=== PATIENT | female | born 1995 ===

== ENCOUNTER 2016-05-22 22:04 | Emergency (ER) | payer OTHER ==
[2016-05-22 22:28] VITALS: BP 136/86; PULSE 98; RESP 16; TEMP 99.2; O2SAT 100
--- NOTE | 2016-05-22 22:57 | ED PDOC ---
HPI: Female Pain Time Seen by Provider: 05/22/16 22:31 Chief Complaint (Nursing): Female Genitourinary Chief Complaint (Provider): vaginal irritation History Per: Patient History/Exam Limitations: no limitations Onset/Duration Of Symptoms: Days (3) Current Symptoms Are (Timing): Still Present Quality Of Discomfort: Burning Additional History Per: Patient Additional Complaint(s): 21 y/o female presents with dysuria, x 3 days. Associated vaginal itching/ burning with white discharge. Denies fever, nausea/vomiting, abdominal pain, pelvic pain, hematuria. Past Medical History Reviewed: Historical Data, Nursing Documentation, Vital Signs Vital Signs: Last Vital Signs Temp 99.2 F 05/22/16 22:25 Pulse 98 H 05/22/16 22:25 Resp 16 05/22/16 22:25 BP 136/86 05/22/16 22:25 Pulse Ox 100 05/22/16 22:25 - Medical History PMH: No Chronic Diseases - Surgical History Surgical History: No Surg Hx - Family History Family History: States: Unknown Family Hx - Home Medications Home Medications: Ambulatory Orders Medication Instructions Recorded Fluconazole [Diflucan] 150 mg PO ONCE #1 tab 05/22/16 - Allergies Allergies/Adverse Reactions: Allergies Allergy/AdvReac Type Severity Reaction Status Date / Time Penicillins Allergy RASH Verified 05/22/16 22:28 pineapple Allergy RASH Verified 05/22/16 22:28 Review of Systems ROS Statement: Except As Marked, All Systems Reviewed And Found Negative Genitourinary Female: Positive for: Dysuria, Vaginal Discharge Physical Exam - Reviewed Nursing Documentation Reviewed: Yes Vital Signs Reviewed: Yes - Physical Exam Appears: Positive for: Well, Non-toxic, No Acute Distress Head Exam: Positive for: ATRAUMATIC, NORMAL INSPECTION, NORMOCEPHALIC Skin: Positive for: Normal Color Cardiovascular/Chest: Positive for: Regular Rate, Rhythm Respiratory: Positive for: Normal Breath Sounds Pelvic Exam: Positive for: External Exam Normal, No Cerv. Motion Tender, Discharge (white "cottage cheese"), Other (exam chaperoned by Nikole DELAROSA). Negative for: Active Bleeding Extremity: Positive for: Normal ROM Neurologic/Psych: Positive for: Alert, Oriented - ECG O2 Sat by Pulse Oximetry: 100 Disposition - Clinical Impression Clinical Impression: Candidiasis of vagina - Patient ED Disposition Is Patient to be Admitted: No Counseled Patient/Family Regarding: Studies Performed, Diagnosis, Need For Followup, Rx Given - [facility] Disposition: Routine/Home Disposition Time: 23:24 Condition: GOOD Prescriptions: Fluconazole [Diflucan] 150 mg PO ONCE #1 tab Instructions: Vulvovaginal Candidiasis (ED) Print Language: ICELANDIC
[2016-05-22 23:16] LABS: RBC URINE 4 /hpf (0-3); URINE BACTERIA MANY (<OCC); URINE BILIRUBIN NEGATIVE (NEGATIVE); URINE BLOOD NEGATIVE (NEGATIVE); URINE COLOR STRAW (YELLOW); URINE GLUCOSE (UA) NEG (Normal); URINE KETONE NEGATIVE (NEGATIVE); URINE LEUKOCYTE ESTERASE MOD Leu/uL (Negative); URINE PROTEIN NEGATIVE (NEGATIVE); URINE UROBILINOGEN 0.2-1.0 mg/dL (0.2-1.0); WBC URINE 2 /hpf (0-5)
== END 2016-05-22 23:44 | disposition home or self-care (01) ==
LOC: H.ER 22:04
DX: N39.0 Urinary tract infection, site not specified (principal); B37.3 Candidiasis of vulva and vagina

== ENCOUNTER 2018-04-04 10:49 | Emergency (ER) | payer SELFPAY ==
[2018-04-04 11:04] VITALS: O2SAT 99
--- NOTE | 2018-04-04 11:21 | ED PDOC ---
HPI: Female Pain Time Seen by Provider: 04/04/18 11:03 History Per: Patient Additional Complaint(s): Pt. states since Friday she's had dysuria, hematuria. Also reports vaginal pruritus without discharge. Denies fever, back pain, flank pain, incontinence, abd pain, antipyretic use, chills. Past Medical History Reviewed: Historical Data, Nursing Documentation, Vital Signs Vital Signs: Last Vital Signs Temp 98.8 F 04/04/18 11:03 Pulse 95 H 04/04/18 11:03 Resp 14 04/04/18 11:03 BP 112/71 04/04/18 11:03 Pulse Ox 99 04/04/18 11:03 - Family History Family History: States: Unknown Family Hx - Home Medications Home Medications: Ambulatory Orders Medication Instructions Recorded Fluconazole [Diflucan] 150 mg PO ONCE #1 tab 05/22/16 Nitrofurantoin Macrocrystals 100 mg PO BID #14 cap 05/22/16 [Macrobid] Fluconazole [Diflucan] 150 mg PO ONCE #1 tab 04/04/18 Nitrofurantoin Macrocrystals 100 mg PO BID #14 cap 04/04/18 [Macrobid] - Allergies Allergies/Adverse Reactions: Allergies Allergy/AdvReac Type Severity Reaction Status Date / Time Penicillins Allergy RASH Verified 05/22/16 22:28 pineapple Allergy RASH Verified 05/22/16 22:28 Review of Systems ROS Statement: Except As Marked, All Systems Reviewed And Found Negative Genitourinary Female: Positive for: Dysuria, Hematuria Physical Exam - Physical Exam Appears: Positive for: Well, Non-toxic, No Acute Distress Skin: Positive for: Normal Color, Warm. Negative for: Rash Eye Exam: Positive for: Normal appearance Gastrointestinal/Abdominal: Positive for: Normal Exam, Soft. Negative for: Tenderness, Distended Back: Negative for: L CVA Tenderness, R CVA Tenderness Extremity: Positive for: Normal ROM Neurologic/Psych: Positive for: Alert, Oriented (x3) - Laboratory Results Urine POC: Negative Urine dip results: Positive for: Leukocyte Esterase (small), Nitrate (positive). Negative for: Blood, Ketones, Glucose, Bilirubin, Protein - ECG O2 Sat by Pulse Oximetry: 99 - Progress ED Course And Treament: Urine C&S sent. Disposition - Clinical Impression Clinical Impression: Urinary tract infection, Vaginitis - Patient ED Disposition Is Patient to be Admitted: No - Disposition Referrals: [facility] [Outside] Disposition: Routine/Home Disposition Time: 11:21 Condition: STABLE Additional Instructions: FOLLOW UP WITH [facility] FOR FURTHER EVALAUTION RETURN TO ED IMMEDIATELY IF SYMPTOMS WORSEN DANIELLE YA PAYAN, thank you for letting us take care of you today. Your provider was Hugo Pineda MD and you were treated for FEMALE GENITOURINARY. The emergency medical care you received today was directed at your acute symptoms. If you were prescribed any medication, please fill it and take as directed. It may take several days for your symptoms to resolve. Return to the Emergency Department if your symptoms worsen, do not improve, or if you have any other problems. Please contact your doctor or call one of the physicians/clinics you have been referred to that are listed on the Patient Visit Information form that is included in your discharge packet. Bring any paperwork you were given at discharge with you along with any medications you are taking to your follow up visit. Our treatment cannot replace ongoing medical care by a primary care provider outside of the emergency department. Thank you for allowing the [facility] team to be part of your care today. If you had an X-Ray or CT scan: A Radiologist will review the ED reading if any change in treatment is needed we will contact you. If you had a blood, urine, or wound culture: It will take several days for the results, if any change in treatment is needed we will contact you. If you had an STI test: It will take 48 hours for the results. Please call after 1 week if you have not heard back. Prescriptions: Fluconazole [Diflucan] 150 mg PO ONCE #1 tab Nitrofurantoin Macrocrystals [Macrobid] 100 mg PO BID #14 cap Instructions: Urinary Tract Infection, Adult (DC), Vaginitis Print Language: GEORGIAN
[2018-04-04 11:52] VITALS: BP 114/68; PULSE 70; RESP 18; TEMP 98
--- NOTE | 2018-04-06 10:38 | ED PDOC ---
ED Additional Note - Date & Time of Evaluation Date of Evaluation: 04/06/18 Time of Evaluation: 10:30 - Physician Additional Note Physician Additional Note: Patient's urine culture from 04/04 returned with inconclusive sensitivity to Nitrofurantoin. Pt called and states that her dysuria has improved although continues to have vaginal itching. Pt advised to complete course of Nitrofurantoin given improvement in urinary symptoms. She was advised to return to ER of follow-up with primary care doctor if symptoms return.
== END 2018-04-04 11:49 | disposition home or self-care (01) ==
LOC: H.ER 10:49
DX: N39.0 Urinary tract infection, site not specified (principal); N76.0 Acute vaginitis; Z88.0 Allergy status to penicillin